=== PATIENT | male | born 1980 | race American Indian/Alaskan Native ===

== ENCOUNTER 2022-04-10 07:46 | Day surgery (SDC) | payer MEDICAID ==
[~2022-04-10] VITALS: Ht 167.6 cm; Wt 77.3 kg
[2022-04-10 07:57] VITALS: BP 135/69
[2022-04-10] MEDS ORDERED: MIDAZolam 1 MG/ML 5ML VIAL ONE (08:09)
[2022-04-10] MEDS ORDERED: LIDOcaine Viscous 15ml cup ONE (08:09)
[2022-04-10] MEDS ORDERED: fentaNYL/PF 50MCG/1 ML 2ML syringe ONE (08:09)
[2022-04-10] MEDS ORDERED: FAMO20TA47 PO (08:15)
[2022-04-10] MEDS ORDERED: OMEP40CA21 PO (08:15)
[2022-04-10 10:52] VITALS: BP 106/49
[2022-04-10 11:02] VITALS: BP 104/53
[2022-04-10 11:12] VITALS: BP 102/54
[2022-04-10 11:22] VITALS: BP 104/57
== END 2022-04-10 11:28 | disposition home or self-care (01) ==
LOC: GI LAB 07:46
PROVIDERS: ATTEND Internal Medicine Gastroenterology
DX: R10.13 Epigastric pain (principal); K92.1 Melena; K21.00 Gastro-esophageal reflux disease with esophagitis, without bleeding; K29.50 Unspecified chronic gastritis without bleeding; D12.5 Benign neoplasm of sigmoid colon; K62.1 Rectal polyp; K64.8 Other hemorrhoids; Z87.891 Personal history of nicotine dependence; Z88.0 Allergy status to penicillin
CPT/HCPCS: 43239; 45380; 45385; 99152; 99153; C1773; J2250; J3010; J7030; Z7512; A4620